=== PATIENT | male | born 1975 ===

== ENCOUNTER 2022-12-29 06:33 | Outpatient (CLI) | payer OTHER | END 2022-12-29 06:34 | disposition home or self-care (01) | LOC: LAB 06:33 | DX: N39.0 Urinary tract infection, site not specified (principal); E13.8 Other specified diabetes mellitus with unspecified complications; E78.2 Mixed hyperlipidemia; E55.9 Vitamin D deficiency, unspecified; D68.9 Coagulation defect, unspecified; D64.9 Anemia, unspecified ==